=== PATIENT | female | born 1990 | race Caucasian/White ===

== ENCOUNTER 2021-10-12 10:35 | Emergency (ER) | payer OTHER ==
[~2021-10-12] VITALS: Ht 167.6 cm; Wt 81.6 kg
[2021-10-12] MEDS ORDERED: PREDNISONE10 MG PO (11:18)
== END 2021-10-12 11:21 | disposition home or self-care (01) ==
LOC: ED 10:35
DX: L23.7 Allergic contact dermatitis due to plants, except food (principal)